=== PATIENT | female | born 1945 | race Caucasian/White ===

== ENCOUNTER 2016-09-11 20:29 | Emergency (ER) | payer OTHER ==
[~2016-09-11] VITALS: Ht 152.4 cm; Wt 64.9 kg
[2016-09-11 20:30] VITALS: BP 168/93
[2016-09-11] MEDS ORDERED: GLICLAZIDE PO (20:49)
[2016-09-11] MEDS ORDERED: METF1000 PO (20:49)
[2016-09-11] MEDS ORDERED: IRBE150T12 PO (20:49)
[2016-09-11] MEDS ORDERED: ROSU20TA PO (20:49)
[2016-09-11] MEDS ORDERED: ESCI20TA PO (20:49)
[2016-09-11] MEDS ORDERED: KEFL500C7 PO (21:56)
[2016-09-11] MEDS ORDERED: GENTAMICIN 0.3% OPHTH SOL 5 ML BTL OD ONE (22:00)
[2016-09-11] MEDS ORDERED: CEPHALEXIN 500 MG CAP PO ONE (22:00)
== END 2016-09-11 22:08 | disposition home or self-care (01) ==
LOC: M ED 21:19
DX: E11.65 Type 2 diabetes mellitus with hyperglycemia (principal); H10.30 Unspecified acute conjunctivitis, unspecified eye; J01.90 Acute sinusitis, unspecified; J30.2 Other seasonal allergic rhinitis; Z79.899 Other long term (current) drug therapy; Z88.0 Allergy status to penicillin; Z88.1 Allergy status to other antibiotic agents; Z88.2 Allergy status to sulfonamides; Z88.8 Allergy status to other drugs, medicaments and biological substances; Z91.018 Allergy to other foods